=== PATIENT | male | born 2000 | race Caucasian/White ===

== ENCOUNTER → 2024-09-05 13:36 | Outpatient (CLI) | payer OTHER, MEDICAID, SELFPAY ==
[2024-09-05 14:27] LABS: Ur Creatinine Normal (Normal); Ur Specific Gravity Normal (Normal); Urine Amphetamines Negative (Negative); Urine Barbiturates Negative (Negative); Urine Benzodiazepines Negative (Negative); Urine Cocaine Negative (Negative); Urine MDMA Negative (Negative); Urine Methadone Negative (Negative); Urine Methamphetamines Negative (Negative); Urine Opiates Negative (Negative); Urine Oxycodone Negative (Negative); Urine Phencyclidine Negative (Negative); Urine THC Negative (Negative); Urine Tricyclic Antidepressant Negative (Negative); Urine pH Normal (Normal)
[2024-09-05 19:05] LABS: Sample 1 Time NEGATIVE
[2024-09-05 19:06] LABS: Sample 2 time NEGATIVE; Sample 3 time NEGATIVE
== END ==
PROVIDERS: PCP Nurse Practitioner Family; Referring Provider Nurse Practitioner Family; Visit Provider Nurse Practitioner Family
DX: Z02.83 Encounter for blood-alcohol and blood-drug test (principal); K62.5 Hemorrhage of anus and rectum
CPT/HCPCS: 80305; 82270

== ENCOUNTER 2024-09-05 15:09 | Emergency (ER) | payer OTHER, MEDICAID, SELFPAY ==
[2024-09-05 15:19] VITALS: BP 132/78; PULSE 80; RESP 18; TEMP 36.9; O2SAT 98; BMI 33.6
--- NOTE | 2024-09-05 17:01 | PC.NURSE ---
Pt reports only going approx 2-3 times a week BM. Pt states he dropped of stool sample earlier today. Pt reports that he has noticed blood and mucus but recently started to feel pain in his rectum. Abdomen not tender. Abdomen soft to touch. Pt reports his diet could be better. Pt reports recently increasing fiber in diet.
--- NOTE | 2024-09-05 17:10 | DI.CT.S_ITS ---
PROCEDURE: CT ABDOMEN PELVIS W CON INDICATIONS: abdominal pain TECHNIQUE: After the administration of intravenous contrast, axial sections acquired from the lung bases to the pubic symphysis. Coronal and sagittal reformats were performed. For radiation dose reduction, the following was used: automated exposure control, adjustment of mA and/or kV according to patient size. COMPARISON: None. FINDINGS: Image quality: Diagnostic. Lower Chest: No significant findings. ABDOMEN: Liver: No solid mass. Gallbladder: No radiopaque gallstones or wall thickening. Biliary ducts: No biliary dilation. Pancreas: No ductal dilation. Spleen: Size is within normal limits. Adrenal Glands: No adrenal nodules. Kidneys and Ureters: No hydronephrosis. No solid mass. No complex renal cystic lesion which requires follow up. Stomach and Bowel: Normal colonic caliber, without significant wall thickening. Colonic diverticula are present without inflammatory change. Peritoneum: No abnormal intraperitoneal fluid. No free air. Ventral Wall: No significant ventral hernia. Abdominal Nodes: No retroperitoneal or mesenteric adenopathy by size criteria. Vessels: Aorta and inferior vena cava are normal in size. PELVIS: Pelvic Organs: Unremarkable. Bladder: No bladder wall thickening, accounting for underdistention. Pelvic Nodes: No enlarged lymph nodes. Miscellaneous: No inguinal hernias are seen. Bones: No aggressive osseous abnormality. IMPRESSION: No acute intra-abdominal or pelvic process. Diverticulosis. Dictated by: Kendy Villafana M.D. on 09/05/2024 at 18:43 Approved by: Kendy Villafana M.D. on 09/05/2024 at 18:45
--- NOTE | 2024-09-05 17:53 | ED.GENADULT ---
HPI - General Adult <Aroldo Garcia MD - Last Filed: 09/09/24 15:29> General Chief complaint: Urogenital-Male Stated complaint: blood and mucus in stool, sent by [facility] Time Seen by Provider: 09/05/24 17:07 Source: patient Mode of arrival: Ambulatory History of Present Illness HPI narrative: patient here for mucous/bloody discharge per rectum. Ongoing for the past 1 week. Patient at walk-in clinic prior to arrival. Patient denies any fever chills. No nausea or vomiting. No family history or personal history of inflammatory bowel disease. Never had any abdominal surgical history or endoscopy. Patient in no distress. Is not on any blood thinners. No known sick contacts. No recent foreign travel or contaminated foods. Related Data Previous Rx's Medication Instructions Recorded dextroamphetamine-amphetamine ER 10 mg PO DAILY #30 caps 08/29/24 10 mg 24hr capsule,extend release dextroamphetamine-amphetamine ER 10 mg PO DAILY #30 caps 08/29/24 10 mg 24hr capsule,extend release dextroamphetamine-amphetamine ER 10 mg PO DAILY #30 caps 08/29/24 10 mg 24hr capsule,extend release vancomycin 125 mg capsule 125 mg PO QID #40 caps 09/05/24 Allergies Allergy/AdvReac Type Severity Reaction Status Date / Time nut - unspecified AdvReac Severe Difficulty Verified 09/07/24 19:18 Breathing poppy seed Allergy Severe Difficulty Uncoded 09/07/24 19:18 Breathing chocolate Allergy Intermediate Uncoded 09/07/24 19:18 Review of Systems <Aroldo Garcia MD - Last Filed: 09/09/24 15:29> Review of Systems Narrative: GENERAL: Negative chills, fatigue, malaise, fever, sweats. HEENT: Negative sinus pain, ear pain, sore throat RESPIRATORY: Negative dyspnea, cough CARDIOVASCULAR: Negative chest pain, palpitations GASTROINTESTINAL: Negative nausea, vomiting, positive abdominal pain, and bloody stool : Negative dysuria, frequency, hematuria MUSCULOSKELETAL: Negative muscle or bony pain SKIN: Negative rash, skin lesions NEUROLOGIC: Negative weakness, numbness ROS Unobtainable: All systems reviewed & are unremarkable except as noted in HPI and below Patient History <Aroldo Garcia MD - Last Filed: 09/09/24 15:29> Medical History Food allergy Social History Smoking Status: Never smoker Smoking Status: Never smoker Substance Use Type: does not use Exam <Aroldo Garcia MD - Last Filed: 09/09/24 15:29> Narrative Exam Narrative: GENERAL: in no distress, not toxic not dyspneic HEAD: Normocephalic. EYES: Pupils equal round ENT: Mucous membranes moist. NECK: Trachea midline. CARDIOVASCULAR: Regular rate and rhythm RESPIRATORY: Clear to auscultation. Breath sounds equal bilaterally. No wheezes, rales, or rhonchi. GASTROINTESTINAL: Abdomen soft, non-tender abdomen is soft flat nontender no peritoneal signs no pain out of portion exam no guarding no rebound bowel sounds are present EXTREMITIES: No gross deformities. BACK: No flank tenderness. NEURO: AOx4. SKIN: Warm and dry PSYCH: Not anxious, is cooperative Initial Vital Signs Initial Vital Signs: Vital Signs Temperature 98.5 F 09/05/24 15:19 Pulse Rate 80 09/05/24 15:19 Respiratory Rate 18 09/05/24 15:19 Blood Pressure 132/78 09/05/24 15:19 Pulse Oximetry 98 09/05/24 15:19 Oxygen Delivery Method Room Air 09/05/24 15:19 <Ely Mead DO - Last Filed: 09/06/24 02:36> Initial Vital Signs Initial Vital Signs: Vital Signs Temperature 98.5 F 09/05/24 15:19 Pulse Rate 80 09/05/24 15:19 Respiratory Rate 18 09/05/24 15:19 Blood Pressure 132/78 09/05/24 15:19 Pulse Oximetry 98 09/05/24 15:19 Oxygen Delivery Method Room Air 09/05/24 15:19 Course <Aroldo Garcia MD - Last Filed: 09/09/24 15:29> Orders Ordered: Discontinued Medications Sodium Chloride (Normal Saline 0.9%) 500 mls @ 1,000 mls/hr IV BOLUS ONE Stop: 09/05/24 17:38 Last Infusion: 09/05/24 18:43 Dose: Infused Documented By: Admin: 09/05/24 18:01 Dose: 1,000 mls/hr Documented By: RENETTA Vancomycin HCl (Vancomycin 125 Mg Capsule) 125 mg PO NOW ONE Stop: 09/05/24 19:52 Last Admin: 09/05/24 20:15 Dose: 125 mg Documented By: JONATAN Vital Signs Vital signs: Vital Signs - 8 hr 09/05/24 19:08 09/05/24 19:08 09/05/24 20:59 Pulse Rate 74 81 Respiratory Rate 18 16 16 Blood Pressure 123/76 131/81 Pulse Oximetry 98 97 Oxygen Delivery Method Room Air Room Air <Ely Mead DO - Last Filed: 09/06/24 02:36> Orders Ordered: Discontinued Medications Sodium Chloride (Normal Saline 0.9%) 500 mls @ 1,000 mls/hr IV BOLUS ONE Stop: 09/05/24 17:38 Last Infusion: 09/05/24 18:43 Dose: Infused Documented By: Admin: 09/05/24 18:01 Dose: 1,000 mls/hr Documented By: RENETTA Vancomycin HCl (Vancomycin 125 Mg Capsule) 125 mg PO NOW ONE Stop: 09/05/24 19:52 Last Admin: 09/05/24 20:15 Dose: 125 mg Documented By: JONATAN Vital Signs Vital signs: Vital Signs - 8 hr 09/05/24 19:08 09/05/24 19:08 09/05/24 20:59 Pulse Rate 74 81 Respiratory Rate 18 16 16 Blood Pressure 123/76 131/81 Pulse Oximetry 98 97 Oxygen Delivery Method Room Air Room Air Medical Decision Making <Aroldo Garcia MD - Last Filed: 09/09/24 15:29> Lab Data 09/05/24 17:46 09/05/24 17:46 Labs: Lab Results 09/05/24 Range/Units 17:46 WBC 6.1 (4.5-11.0) X10^3/uL RBC 5.25 (4.5-5.9) X10^6/uL Hgb 16.2 (13.5-17.5) g/dL Hct 47.5 (41-53) % MCV 90.5 (80-100) fL MCH 30.9 (26-34) PG MCHC 34.2 (30-36) % RDW 12.9 (11.6-14.8) % Plt Count 210 (150-400) X10^3/uL Neut % (Auto) 53.6 (50-75) % Lymph % (Auto) 32.6 (25-40) % [place] % (Auto) 8.7 (3-14) % Eos % (Auto) 4.7 H (2-4) % Baso % (Auto) 0.4 (0-2) % Neut # (Auto) 3300 (1973-1405) /uL Lymph # (Auto) 2000 (8405-8555) /uL [place] # (Auto) 500 (0-900) /uL Eos # (Auto) 300 (0-450) /uL Baso # (Auto) 0 (0-100) /uL Sodium 137 (137-145) mmol/L Potassium 4.1 (3.4-5.1) mmol/L Chloride 102 (98-107) mmol/L Carbon Dioxide 28 (22-32) mmol/L BUN 10 (9-20) mg/dL Creatinine 0.83 (0.66-1.25) mg/dL Estimated GFR > 60 (>60) mL/min BUN/Creatinine Ratio 12.0 (6-22) Glucose 93 (70-100) mg/dL Calcium 9.8 (8.4-10.2) mg/dL Total Bilirubin 0.9 (0.2-1.3) mg/dL AST 28 (17-59) IU/L ALT 48 (<50) IU/L Alkaline Phosphatase 55 (38-126) U/L Total Protein 8.2 (6.3-8.2) g/dL Albumin 4.8 (3.5-5.0) g/dL Globulin 3.4 (1.7-4.1) g/dL Albumin/Globulin Ratio 1.4 (1.0-2.8) Stl C. cayetanensis PCR Not detected (Not Detect) Stool Rotavirus (PCR) Not detected (Not Detect) Stool Adenovirus (PCR) Not detected (Not Detect) Stool Astrovirus (PCR) Not detected (Not Detect) Stool Cryptosporidium PCR Not detected (Not Detect) Stl E.coli Shiga Tox PCR Not detected (Not Detect) St Sh/Enteroin Ecoli PCR Not detected (Not Detect) Stl Enterotoxigenic E PCR Not detected (Not Detect) Stool EPEC (PCR) Not detected (Not Detect) Stl E. histolytica PCR Not detected (Not Detect) Stool Giardia Lamblia PCR Not detected (Not Detect) Stool Sapovirus (PCR) Not detected (Not Detect) Stl P. shigelloides PCR Not detected (Not Detect) St Y.enterocolitica PCR Not detected (Not Detect) Stool Vibrio (PCR) Not detected (Not Detect) Stl Vibrio cholerae PCR Not detected (Not Detect) Stl Enteroaggr Ecoli PCR Not detected (Not Detect) Stl Norovirus GI/GII PCR Not detected (Not Detect) Chlamy pneumoniae PCR Not detected (Not Detect) Adenovirus (PCR) Not detected (Not Detect) B. pertussis DNA (PCR) Not detected (Not Detect) B.parapertussis DNA PCR Not detected (Not Detecte) Campylobacter (PCR) Not detected (Not Detect) C. difficile Tox (PCR) Detected H (Not Detect) C. diff Toxin A&B (EIA) Cancelled Coronavirus OC43 (PCR) Not detected (Not Detect) Coronavirus HKU1 (PCR) Not detected (Not Detect) Coronavirus 229E (PCR) Not detected (Not Detect) SARS-CoV-2 (PCR) Not detected (Not Detecte) Coronavirus NL63 (PCR) Not detected (Not Detect) Human Metapneumovir PCR Not detected (Not Detect) Influenza Type A (PCR) Not detected (Not Detect) Influenza Type B (PCR) Not detected (Not Detect) M. pneumoniae (PCR) Not detected (Not Detect) Parainfluenza 1 (PCR) Not detected (Not Detect) Parainfluenza 2 (PCR) Not detected (Not Detect) Parainfluenza 3 (PCR) Not detected (Not Detect) Parainfluenza 4 (PCR) Not detected (Not Detect) RSV (PCR) Not detected (Not Detect) Entero/Rhino (PCR) Not detected (Not Detect) Salmonella (PCR) Not detected (Not Detect) MDM Narrative Medical decision making narrative: patient here for mucous/bloody discharge per rectum. Ongoing for the past 1 week. Patient at walk-in clinic prior to arrival. Patient denies any fever chills. No nausea or vomiting. No family history or personal history of inflammatory bowel disease. Never had any abdominal surgical history or endoscopy. Patient in no distress. Is not on any blood thinners. No known sick contacts. No recent foreign travel or contaminated foods. After history and exam CBC CMP GI panel respiratory panel CT abdomen pelvis [facility] Medical records reviewed: no recent visit for this complaint to the ER Differential considered: Includes but not limited to norovirus colitis IBD Lab Test results independently reviewed as above. Pertinent findings: Imaging studies independently reviewed: Consultations: Treatments: Re-evaluations: Discussion: Diagnosis: 6:00 p.m.. Jose: Sign out to Dr Mead, labs and CT imaging pending. Exam is reassuring <Ely Mead, DO - Last Filed: 09/06/24 02:36> Lab Data Labs: Lab Results 09/05/24 Range/Units 17:46 WBC 6.1 (4.5-11.0) X10^3/uL RBC 5.25 (4.5-5.9) X10^6/uL Hgb 16.2 (13.5-17.5) g/dL Hct 47.5 (41-53) % MCV 90.5 (80-100) fL MCH 30.9 (26-34) PG MCHC 34.2 (30-36) % RDW 12.9 (11.6-14.8) % Plt Count 210 (150-400) X10^3/uL Neut % (Auto) 53.6 (50-75) % Lymph % (Auto) 32.6 (25-40) % [place] % (Auto) 8.7 (3-14) % Eos % (Auto) 4.7 H (2-4) % Baso % (Auto) 0.4 (0-2) % Neut # (Auto) 3300 (8868-9186) /uL Lymph # (Auto) 2000 (8737-8986) /uL [place] # (Auto) 500 (0-900) /uL Eos # (Auto) 300 (0-450) /uL Baso # (Auto) 0 (0-100) /uL Sodium 137 (137-145) mmol/L Potassium 4.1 (3.4-5.1) mmol/L Chloride 102 (98-107) mmol/L Carbon Dioxide 28 (22-32) mmol/L BUN 10 (9-20) mg/dL Creatinine 0.83 (0.66-1.25) mg/dL Estimated GFR > 60 (>60) mL/min BUN/Creatinine Ratio 12.0 (6-22) Glucose 93 (70-100) mg/dL Calcium 9.8 (8.4-10.2) mg/dL Total Bilirubin 0.9 (0.2-1.3) mg/dL AST 28 (17-59) IU/L ALT 48 (<50) IU/L Alkaline Phosphatase 55 (38-126) U/L Total Protein 8.2 (6.3-8.2) g/dL Albumin 4.8 (3.5-5.0) g/dL Globulin 3.4 (1.7-4.1) g/dL Albumin/Globulin Ratio 1.4 (1.0-2.8) Stl C. cayetanensis PCR Not detected (Not Detect) Stool Rotavirus (PCR) Not detected (Not Detect) Stool Adenovirus (PCR) Not detected (Not Detect) Stool Astrovirus (PCR) Not detected (Not Detect) Stool Cryptosporidium PCR Not detected (Not Detect) Stl E.coli Shiga Tox PCR Not detected (Not Detect) St Sh/Enteroin Ecoli PCR Not detected (Not Detect) Stl Enterotoxigenic E PCR Not detected (Not Detect) Stool EPEC (PCR) Not detected (Not Detect) Stl E. histolytica PCR Not detected (Not Detect) Stool Giardia Lamblia PCR Not detected (Not Detect) Stool Sapovirus (PCR) Not detected (Not Detect) Stl P. shigelloides PCR Not detected (Not Detect) St Y.enterocolitica PCR Not detected (Not Detect) Stool Vibrio (PCR) Not detected (Not Detect) Stl Vibrio cholerae PCR Not detected (Not Detect) Stl Enteroaggr Ecoli PCR Not detected (Not Detect) Stl Norovirus GI/GII PCR Not detected (Not Detect) Chlamy pneumoniae PCR Not detected (Not Detect) Adenovirus (PCR) Not detected (Not Detect) B. pertussis DNA (PCR) Not detected (Not Detect) B.parapertussis DNA PCR Not detected (Not Detecte) Campylobacter (PCR) Not detected (Not Detect) C. difficile Tox (PCR) Detected H (Not Detect) C. diff Toxin A&B (EIA) Cancelled Coronavirus OC43 (PCR) Not detected (Not Detect) Coronavirus HKU1 (PCR) Not detected (Not Detect) Coronavirus 229E (PCR) Not detected (Not Detect) SARS-CoV-2 (PCR) Not detected (Not Detecte) Coronavirus NL63 (PCR) Not detected (Not Detect) Human Metapneumovir PCR Not detected (Not Detect) Influenza Type A (PCR) Not detected (Not Detect) Influenza Type B (PCR) Not detected (Not Detect) M. pneumoniae (PCR) Not detected (Not Detect) Parainfluenza 1 (PCR) Not detected (Not Detect) Parainfluenza 2 (PCR) Not detected (Not Detect) Parainfluenza 3 (PCR) Not detected (Not Detect) Parainfluenza 4 (PCR) Not detected (Not Detect) RSV (PCR) Not detected (Not Detect) Entero/Rhino (PCR) Not detected (Not Detect) Salmonella (PCR) Not detected (Not Detect) Imaging Data CT scan - abdomen/pelvis: Radiologist's Impression: PROCEDURE: CT ABDOMEN PELVIS W CON INDICATIONS: abdominal pain TECHNIQUE: After the administration of intravenous contrast, axial sections acquired from the lung bases to the pubic symphysis. Coronal and sagittal reformats were performed. For radiation dose reduction, the following was used: automated exposure control, adjustment of mA and/or kV according to patient size. COMPARISON: None. FINDINGS: Image quality: Diagnostic. Lower Chest: No significant findings. ABDOMEN: Liver: No solid mass. Gallbladder: No radiopaque gallstones or wall thickening. Biliary ducts: No biliary dilation. Pancreas: No ductal dilation. Spleen: Size is within normal limits. Adrenal Glands: No adrenal nodules. Kidneys and Ureters: No hydronephrosis. No solid mass. No complex renal cystic lesion which requires follow up. Stomach and Bowel: Normal colonic caliber, without significant wall thickening. Colonic diverticula are present without inflammatory change. Peritoneum: No abnormal intraperitoneal fluid. No free air. Ventral Wall: No significant ventral hernia. Abdominal Nodes: No retroperitoneal or mesenteric adenopathy by size criteria. Vessels: Aorta and inferior vena cava are normal in size. PELVIS: Pelvic Organs: Unremarkable. Bladder: No bladder wall thickening, accounting for underdistention. Pelvic Nodes: No enlarged lymph nodes. Miscellaneous: No inguinal hernias are seen. Bones: No aggressive osseous abnormality. IMPRESSION: No acute intra-abdominal or pelvic process. Diverticulosis. Dictated by: Kendy Villafana M.D. on 09/05/2024 at 18:43 MDM Narrative Medical decision making narrative: patient here for mucous/bloody discharge per rectum. Ongoing for the past 1 week. Patient at walk-in clinic prior to arrival. Patient denies any fever chills. No nausea or vomiting. No family history or personal history of inflammatory bowel disease. Never had any abdominal surgical history or endoscopy. Patient in no distress. Is not on any blood thinners. No known sick contacts. No recent foreign travel or contaminated foods. After history and exam CBC CMP GI panel respiratory panel CT abdomen pelvis [facility] Medical records reviewed: no recent visit for this complaint to the ER Differential considered: Includes but not limited to norovirus colitis IBD Lab Test results independently reviewed as above. Pertinent findings: Imaging studies independently reviewed: Consultations: Treatments: Re-evaluations: Discussion: Diagnosis: 6:00 p.m.. Jose: Sign out to Dr Mead, labs and CT imaging pending. Exam is reassuring Dr. Mead-patient signed out to me by Dr. Mead I have seen evaluated patient myself. He has been having some bloody mucousy stools for about a week. No significant pain. GI panel is positive for C diff. He denies any recent antibiotics. Blood work shows no leukocytosis or anemi, electrolytes and kidney function within normal limits CT scan shows no intra-abdominal pelvic process. Given first dose of vancomycin. Discharge Plan Departure Patient Disposition: Home Clinical Impression: Clostridium difficile diarrhea Instructions: Clostridium difficile Infection Activity Restrictions/Additional Instructions: *You have been diagnosed with C diff *What to do: At this time you will need an outpatient colonoscopy when this clears. Sometimes this is difficult to clear up you will need to follow up with your primary care provider *Continue to take medications as directed Vancomycin 125 mg every 6 hours for 10 days *Follow up with your primary care provider in 2-3 days or call [phone] *Return to ER if you should have increasing abdominal pain dizziness lightheadedness or any new, worsening or concerning symptoms Prescriptions: New vancomycin 125 mg capsule 125 mg PO QID Qty: 40 0RF No Action dextroamphetamine-amphetamine 10 mg capsule,extended release 24hr 10 mg PO DAILY Qty: 30 0RF dextroamphetamine-amphetamine 10 mg capsule,extended release 24hr 10 mg PO DAILY Qty: 30 0RF dextroamphetamine-amphetamine 10 mg capsule,extended release 24hr 10 mg PO DAILY Qty: 30 0RF Referrals: Loly Cornelius FNP-BC [Primary Care Provider] - Stand Alone Forms: Patient Portal/API/Survey
[2024-09-05] MEDS: SODIUM CHLORIDE 0.9% 500 ML 1000 ML IV (18:01)
[2024-09-05 18:02] LABS: Add Manual Diff / Slide Review NO; Basophils Absolute Auto 0 /uL (0-100); Basophils Percent Auto 0.4 % (0-2); Eosinophils Absolute Auto 300 /uL (0-450); Eosinophils Percent Auto 4.7 % (2-4); Hematocrit 47.5 % (41-53); Hemoglobin 16.2 g/dL (13.5-17.5); Lymphocytes Absolute Auto 2000 /uL (1100-4500); Lymphocytes Percent Auto 32.6 % (25-40); Mean Corpuscular HGB Conc 34.2 % (30-36); Mean Corpuscular Hemoglobin 30.9 PG (26-34); Mean Corpuscular Volume 90.5 fL (80-100); Monocytes Absolute Auto 500 /uL (0-900); Monocytes Percent Auto 8.7 % (3-14); Neutrophils Absolute Auto 3300 /uL (1500-7000); Neutrophils Percent Auto 53.6 % (50-75); Platelet Count 210 X10^3/uL (150-400); Red Blood Cell Count 5.25 X10^6/uL (4.5-5.9); Red Cell Distribution Width 12.9 % (11.6-14.8); White Blood Cell Count 6.1 X10^3/uL (4.5-11.0)
[2024-09-05 18:11] LABS: Alanine Aminotransferase 48 IU/L (<50); Albumin 4.8 g/dL (3.5-5.0); Albumin Globulin Ratio 1.4 (1.0-2.8); Alkaline Phosphatase 55 U/L (38-126); Aspartate Aminotransferase 28 IU/L (17-59); Bilirubin Total 0.9 mg/dL (0.2-1.3); Blood Urea Nitrogen 10 mg/dL (9-20); Calcium 9.8 mg/dL (8.4-10.2); Carbon Dioxide 28 mmol/L (22-32); Chloride 102 mmol/L (98-107); Estimated Glomerular Filt Rate > 60 mL/min (>60); Globulin 3.4 g/dL (1.7-4.1); Glucose 93 mg/dL (70-100); HEMOLYSIS < 15 (0-50); Potassium 4.1 mmol/L (3.4-5.1); Sodium 137 mmol/L (137-145); Total Protein 8.2 g/dL (6.3-8.2)
[2024-09-05 18:45] LABS: Adenovirus Not Detected (Not Detect); B. parapertussis Not Detected (Not Detecte); Bordetella pertussis Not Detected (Not Detect); Chlamydophila pneumoniae Not Detected (Not Detect); Coronavirus 229E Not Detected (Not Detect); Coronavirus HKU1 Not Detected (Not Detect); Coronavirus NL 63 Not Detected (Not Detect); Coronavirus OC43 Not Detected (Not Detect); Human Metapneumovirus Not Detected (Not Detect); Human Rhinovirus/Enterovirus Not Detected (Not Detect); Influenza A Not Detected (Not Detect); Influenza B Not Detected (Not Detect); Mycoplasma pneumoniae Not Detected (Not Detect); Parainfluenza Virus 1 Not Detected (Not Detect); Parainfluenza Virus 2 Not Detected (Not Detect); Parainfluenza Virus 3 Not Detected (Not Detect); Parainfluenza Virus 4 Not Detected (Not Detect); Respiratory Syncytial Virus Not Detected (Not Detect); SARS- CoV-2 Not Detected (Not Detecte)
[2024-09-05 19:08] VITALS: BP 123/76; PULSE 74; RESP 16; RESP 18; O2SAT 98
[2024-09-05 19:14] LABS: Adenovirus F 40/41 Not Detected (Not Detect); Astrovirus Not Detected (Not Detect); Campylobacter Not Detected (Not Detect); Clostridium difficile toxin AB Detected (Not Detect); Cryptosporidium Not Detected (Not Detect); Cyclospora cayetanensis Not Detected (Not Detect); Entamoeba histolytica Not Detected (Not Detect); Enteroaggregative E.coli Not Detected (Not Detect); Enteropathogenic E.coli Not Detected (Not Detect); Enterotoxigenic E.coli It/st Not Detected (Not Detect); Giardia lamblia Not Detected (Not Detect); Norovirus GI/GII Not Detected (Not Detect); Plesiomonsa shigelloides Not Detected (Not Detect); Rotavirus A Not Detected (Not Detect); Salmonella Not Detected (Not Detect); Sapovirus Not Detected (Not Detect); Shiga-like toxin-prod E.coli Not Detected (Not Detect); Shigella/Enteroinvasive E.coli Not Detected (Not Detect); Vibrio Not Detected (Not Detect); Vibrio cholerae Not Detected (Not Detect); Yersinia enterocolitica Not Detected (Not Detect)
[2024-09-05] MEDS: VANCOMYCIN 125 MG CAPSULE PO (20:15)
[2024-09-05 20:59] VITALS: BP 131/81; PULSE 81; RESP 16; O2SAT 97
== END 2024-09-05 21:00 | disposition home or self-care (01) ==
PROVIDERS: Emergency Medicine; Emergency Provider Emergency Medicine; PCP Nurse Practitioner Family
DX: A04.72 Enterocolitis due to Clostridium difficile, not specified as recurrent (principal)
CPT/HCPCS: 74177; 80053; 80305; 82270; 85025; 87324; 87507; 87633; 96360; 99284; Q9967

== ENCOUNTER 2024-09-07 19:12 | Emergency (ER) | payer OTHER, MEDICAID, SELFPAY ==
[2024-09-07 19:16] VITALS: BP 160/72; PULSE 98; RESP 16; TEMP 36.3; O2SAT 99; BMI 32.8
--- NOTE | 2024-09-07 19:20 | EKG_ITS ---
[place] [id number] [place] [id number] Test Date: 2024-09-07 Pat Name: Elijah Peoples Department: [facility] Room: Gender: Male Boarding Mother: JUANITA : 2000 Requested By: Order Number: [id number] Reading MD: Carlos Crystal Measurements Intervals [place] Rate: 81 P: 56 TX: 158 QRS: 86 QRSD: 104 T: 53 QT: 378 QTc: 439 Interpretive Statements Normal sinus rhythm Nonspecific ST abnormality Electronically Signed On 09-10-2024 7:47:11 PST by Carlos Crystal
--- NOTE | 2024-09-07 19:57 | ED_ITS ---
HPI - Chest Pain General Chief Complaint: Chest Pain Stated Complaint: chest px, sob Time Seen by Provider: 09/07/24 19:18 Source: patient Mode of arrival: Ambulatory History of Present Illness HPI narrative: 24-year-old male with recently diagnosed C diff colitis on p.o. vancomycin presents for chest pain. Pain is sharp, worse with adduction of his arms or movements. Nothing seems to make it better or worse. Reports sensation of danyell rtness of breath as well. Symptoms started today. Patient states that he read the instructions for the vancomycin and read that if he has chest pain he should seek medical attention. He called the nursing hotline for his insurance and they referred him to the emergency department. Patient denies family history of heart disease, denies history of diabetes, hypertension, other known cardiac risk factors. Related Data Previous Rx's Medication Instructions Recorded dextroamphetamine-amphetamine ER 10 mg PO DAILY #30 caps 08/29/24 10 mg 24hr capsule,extend release dextroamphetamine-amphetamine ER 10 mg PO DAILY #30 caps 08/29/24 10 mg 24hr capsule,extend release dextroamphetamine-amphetamine ER 10 mg PO DAILY #30 caps 08/29/24 10 mg 24hr capsule,extend release vancomycin 125 mg capsule 125 mg PO QID #40 caps 09/05/24 Allergies Allergy/AdvReac Type Severity Reaction Status Date / Time nut - unspecified AdvReac Severe Difficulty Verified 09/07/24 19:18 Breathing poppy seed Allergy Severe Difficulty Uncoded 09/07/24 19:18 Breathing chocolate Allergy Intermediate Uncoded 09/07/24 19:18 Patient History Medical History Food allergy Social History Smoking Status: Never smoker Smoking Status: Never smoker Substance Use Type: does not use Exam Initial Vital Signs Initial Vital Signs: Vital Signs Temperature 97.3 F L 09/07/24 19:16 Pulse Rate 98 H 09/07/24 19:16 Respiratory Rate 16 09/07/24 19:16 Blood Pressure 160/72 H 09/07/24 19:16 Pulse Oximetry 99 09/07/24 19:16 Oxygen Delivery Method Room Air 09/07/24 19:16 Const: Awake, alert, no acute distress, nontoxic appearing Cardiac: regular rate, regular rhythm Chest: No significant reproducible chest pain to palpation RESP: unlabored, clear bilaterally, no wheezing MSK: No edema, full range of motion, pulses equal Skin: Warm, Dry, intact, no rashes Neuro: AO x3, CN II-XII grossly intact, moves all extremities Course Orders Ordered: ED Orders 09/07/24 19:20 EKG-12 Lead Stat 09/07/24 19:57 Chest [XR chest 2V] Stat Vital Signs Vital signs: Vital Signs - 8 hr 09/07/24 19:16 09/07/24 21:22 Temperature 97.3 F L Pulse Rate 98 H 87 Respiratory Rate 16 18 Blood Pressure 160/72 H 140/81 Pulse Oximetry 99 100 Oxygen Delivery Method Room Air Room Air MDM - Chest Pain Differential Diagnosis Differential diagnosis: Likely atypical chest pain, costochondritis and chest pain Imaging Data Chest x-ray: Radiologist's Impression: PROCEDURE: XR CHEST 2V INDICATIONS: central chest pain, dyspnea x 1 day TECHNIQUE: 2 views of the chest were acquired. COMPARISON: None. FINDINGS: Surgical changes and devices: None. Lungs and pleura: Lungs are clear. No pleural effusions or pneumothorax. Mediastinum: Mediastinal contours are normal. Heart size is normal. Bones and chest wall: No suspicious bony abnormalities. Soft tissues appear unremarkable. IMPRESSION: No acute cardiopulmonary pathology. Dictated by: Tucker Ho M.D. on 09/07/2024 at 21:04 Approved by: Tucker Ho M.D. on 09/07/2024 at 21:05 ECG Data Interpretation: Normal sinus rhythm at 81 beats per minute. Normal [place]. No ST T wave changes, no STEMI MDM Narrative Medical decision making narrative: Well-appearing patient with chest pain that is reproducible with movement. Reporting subjective shortness of breath, however vital signs are unremarkable with oxygen saturations 100% on room air, speaking in complete sentences without dyspnea, lungs are clear to auscultation bilaterally. No rash or other symptoms that would indicate an allergic reaction or other more insidious process. EKG normal sinus rhythm without concerning findings. Chest x-ray negative for acute findings. Technically heart score is 1 based on patient's BMI, however he has no other known cardiac risk factors and history is less suspicious for ACS. Patient reassured, he was advised to continue taking the vancomycin as prescribed. ED return precautions discussed. Discharge Plan Departure Patient Disposition: Home Clinical Impression: Atypical chest pain Instructions: DI for Atypical Chest Pain Activity Restrictions/Additional Instructions: Continue to take the vancomycin as scheduled. You may take Tylenol and ibuprofen as needed for your chest discomfort. Your EKG and chest x-ray looked normal, follow up as needed with your primary care doctor. Prescriptions: No Action dextroamphetamine-amphetamine 10 mg capsule,extended release 24hr 10 mg PO DAILY Qty: 30 0RF dextroamphetamine-amphetamine 10 mg capsule,extended release 24hr 10 mg PO DAILY Qty: 30 0RF dextroamphetamine-amphetamine 10 mg capsule,extended release 24hr 10 mg PO DAILY Qty: 30 0RF vancomycin 125 mg capsule 125 mg PO QID Qty: 40 0RF Referrals: Loly Cornelius FNP-JET [Primary Care Provider] - Stand Alone Forms: Patient Portal/API/Survey
[2024-09-07 21:22] VITALS: BP 140/81; PULSE 87; RESP 18; O2SAT 100
== END 2024-09-07 21:24 | disposition home or self-care (01) ==
PROVIDERS: Emergency Provider Emergency Medicine; PCP Nurse Practitioner Family
DX: R07.89 Other chest pain (principal); R06.02 Shortness of breath
CPT/HCPCS: 71046; 93005; 99281; 99284